=== PATIENT | female | born 1950 | race Caucasian/White ===

== ENCOUNTER → 2017-12-01 | Outpatient (CLI) | payer MEDICARE ==
[~2017-12-01] MED LIST: Aspir 8181 MG PO; CALCAVITDA PO; CHOL10002 PO; CYAN100 PO; Hair, Skin & N1 EACH PO; MULVITMIND PO; VENL75ER PO; Vitamin E100 UNIT PO
== END ==
LOC: LAB 15:20 → LAB SHORT 15:20
DX: N30.00 Acute cystitis without hematuria (principal)
CPT/HCPCS: 87077; 87086; 87186

== ENCOUNTER → 2019-02-14 | Outpatient (CLI) | payer MEDICARE ==
[~2019-02-14] MED LIST changes: +CEPH500 PO
== END ==
LOC: LAB SHORT 09:45 → LAB EV 09:45
DX: N39.0 Urinary tract infection, site not specified (principal)
CPT/HCPCS: 87077; 87086; 87186

== ENCOUNTER → 2020-02-29 | Outpatient (CLI) | payer MEDICARE ==
[2020-03-01 14:07] LABS: Stool Occult Blood Guaiac 1 Neg (Neg)
[2020-03-01 14:08] LABS: Stool Occult Blood Guaiac 2 Neg (Neg)
== END | disposition home or self-care (01) ==
LOC: LAB SHORT 17:30 → LAB EV 17:30 → LAB SHORT 03-01 11:03
PROVIDERS: Physician Assistant
DX: R10.13 Epigastric pain (principal)
CPT/HCPCS: 82272

== ENCOUNTER 2020-03-30 14:33 | Emergency (ER) | payer MEDICARE ==
[~2020-03-30] VITALS: Ht 165.1 cm; Wt 108.9 kg
[2020-03-30 15:33] LABS: BASOPHILS ABSOLUTE AUTO 0.04 K/mm3 (0.00-0.23); BASOPHILS PERCENT AUTO 1 % (0-2); EOSINOPHILS ABSOLUTE AUTO 0.03 K/mm3 (0.00-0.68); EOSINOPHILS PERCENT AUTO 0 % (0-6); Hematocrit 42.8 % (33.0-51.0); Hemoglobin 13.5 g/dL (11.5-16.0); IMMATURE GRAN ABSOLUTE AUTO 0.01 K/mm3 (0.00-0.10); IMMATURE GRAN PERCENT AUTO 0 % (0-1); LYMPHOCYTES ABSOLUTE AUTO 1.62 K/mm3 (0.84-5.20); LYMPHOCYTES PERCENT AUTO 24 % (21-46); MONOCYTES ABSOLUTE AUTO 0.56 K/mm3 (0.16-1.47); MONOCYTES PERCENT AUTO 8 % (4-13); Mean Corpuscular HGB 30.5 pg (26.0-34.0); Mean Corpuscular HGB Conc 31.5 g/dL (31.5-36.5); Mean Corpuscular Volume 97 fL (80-100); Mean Platelet Volume 10.6 fL (9.1-12.4); NEUTROPHILS ABSOLUTE AUTO 4.41 K/mm3 (1.96-9.15); NEUTROPHILS PERCENT AUTO 66 % (41-73); Platelet Count 266 K/mm3 (150-400); RDW Coefficient Variation 13.2 % (11.7-14.2); RDW Standard Deviation 47.6 fL (35.1-46.3); Red Blood Cell Count 4.42 M/mm3 (3.80-5.20); White Blood Cell Count 6.67 K/mm3 (4.00-11.30)
[2020-03-30 15:54] LABS: Alanine Aminotransfer (ALT/SGP 22 U/L (12-78); Albumin, Blood 3.1 g/dL (3.4-5.0); Albumin/Globulin Ratio 0.8 (0.8-1.8); Alk Phos 117 U/L (50-136); Anion Gap 6 mmol/L (6-16); Aspartate Aminotrans (AST/SGOT 20 U/L (12-37); Bilirubin, Total 0.3 mg/dL (0.1-1.0); Blood Urea Nitrogen 12 mg/dL (8-24); Bun/Creatinine Ratio 17.7 (12.0-20.0); CO2, Blood 27 mmol/L (21-32); Calcium, Blood 9.4 mg/dL (8.5-10.1); Chloride, Blood 108 mmol/L (98-108); Creatinine, Blood 0.68 mg/dL (0.40-1.00); Globulin, Blood 4.1 g/dL (2.2-4.0); Glomerular Filtration Rate >60 (60-); Glucose, Blood 119 mg/dL (70-99); Potassium, Blood 4.2 mmol/L (3.5-5.5); Sodium, Blood 141 mmol/L (136-145); Total Protein, Blood 7.2 g/dL (6.4-8.2)
[2020-03-30] MEDS ORDERED: PROM12.5S PR (17:28)
[2020-03-30] MEDS ORDERED: ONDA4ODT MM (17:28)
== END 2020-03-30 18:17 | disposition home or self-care (01) ==
LOC: ER 14:33
PROVIDERS: Emergency Medicine
DX: K52.9 Noninfective gastroenteritis and colitis, unspecified (principal); F32.9 Major depressive disorder, single episode, unspecified; Z79.899 Other long term (current) drug therapy
CPT/HCPCS: 36415; 74176; 80053; 83690; 85025; 96374; 96375; 99284-25; J1200; J2550; J3360; J7030

== ENCOUNTER → 2021-10-23 | Outpatient (CLI) | payer MEDICARE ==
[~2021-10-23] MED LIST changes: +ACET500 PO; +ASPI81CH PO; +ONDA4ODT MM; +OXAYDO5 M1 PO; +PROM12.5S PR
== END ==
LOC: LAB 14:40 → LAB SHORT 14:40
DX: R30.0 Dysuria (principal)
CPT/HCPCS: 87086

== ENCOUNTER 2023-02-01 07:15 | Emergency (ER) | payer MEDICARE ==
[~2023-02-01] VITALS: Ht 170.2 cm; Wt 99.8 kg
[2023-02-01] MEDS ORDERED: TRAZ50 PO (08:02)
[2023-02-01 09:00] LABS: BASOPHILS ABSOLUTE AUTO 0.06 K/mm3 (0.00-0.23); BASOPHILS PERCENT AUTO 1 % (0-2); EOSINOPHILS ABSOLUTE AUTO 0.03 K/mm3 (0.00-0.68); EOSINOPHILS PERCENT AUTO 1 % (0-6); Hematocrit 41.4 % (33.0-51.0); Hemoglobin 13.5 g/dL (11.5-16.0); IMMATURE GRAN ABSOLUTE AUTO 0.02 K/mm3 (0.00-0.10); IMMATURE GRAN PERCENT AUTO 0 % (0-1); LYMPHOCYTES ABSOLUTE AUTO 1.53 K/mm3 (0.84-5.20); LYMPHOCYTES PERCENT AUTO 26 % (21-46); MONOCYTES ABSOLUTE AUTO 0.58 K/mm3 (0.16-1.47); MONOCYTES PERCENT AUTO 10 % (4-13); Mean Corpuscular HGB Conc 32.6 g/dL (31.5-36.5); Mean Corpuscular Volume 95 fL (80-100); Mean Platelet Volume 9.9 fL (9.1-12.4); NEUTROPHILS ABSOLUTE AUTO 3.62 K/mm3 (1.96-9.15); NEUTROPHILS PERCENT AUTO 62 % (41-73); Platelet Count 258 K/mm3 (150-400); RDW Coefficient Variation 12.8 % (11.7-14.2); RDW Standard Deviation 45.1 fL (35.1-46.3); Red Blood Cell Count 4.35 M/mm3 (3.80-5.20); White Blood Cell Count 5.84 K/mm3 (4.00-11.30)
[2023-02-01 09:15] LABS: Albumin, Blood 3.2 g/dL (3.4-5.0); Albumin/Globulin Ratio 0.8 (0.8-1.8); Bilirubin, Total 0.2 mg/dL (0.1-1.0); Bun/Creatinine Ratio 22.7 (12.0-20.0); Calcium, Blood 9.1 mg/dL (8.5-10.1); Creatinine, Blood 0.84 mg/dL (0.40-1.00); Globulin, Blood 4.1 g/dL (2.2-4.0); Total Protein, Blood 7.3 g/dL (6.4-8.2)
[2023-02-01] MEDS ORDERED: HYDHCL25 PO (11:26)
[2023-02-01 11:29] VITALS: BP 147/61
== END 2023-02-01 11:38 | disposition home or self-care (01) ==
LOC: ER 07:15
PROVIDERS: Student in an Organized Health Care Education/Training Program
DX: R07.89 Other chest pain (principal); R06.02 Shortness of breath; F32.A Depression, unspecified; Z79.899 Other long term (current) drug therapy
CPT/HCPCS: 71046; 80053; 84484; 85025; 93005; 93010; 99285-25

== ENCOUNTER 2023-06-02 17:58 | Observation (INO) | payer MEDICARE ==
[~2023-06-02] VITALS: Ht 162.6 cm; Wt 109.8 kg
[~2023-06-02 17:58] MED LIST changes: -FOSAMAX70 MG PO; -OMEP20ER PO; -ROSUVASTATIN CAL5 MG PO; -Venlafaxine HCl75 MG PO
[2023-06-02] MEDS ORDERED: TRAZ50 PO (18:27)
[2023-06-02] MEDS ORDERED: FOSAMAX70 MG PO (18:28)
[2023-06-02] MEDS ORDERED: Venlafaxine HCl75 MG PO (18:28)
[2023-06-02] MEDS ORDERED: ROSUVASTATIN CAL5 MG PO (18:28)
[2023-06-02] MEDS ORDERED: Ketorolac Tromethamine 30mg Vial IV ONE (18:30)
[2023-06-02] MEDS ORDERED: Aspirin 81 MG Chew PO ONE (20:05)
[2023-06-02 20:20] LABS: Influenza A, PCR NEGATIVE (NEGATIVE); Influenza B, PCR NEGATIVE (NEGATIVE); Resp Syncytial Virus, PCR NEGATIVE (NEGATIVE); SARS-Cov-2 (COVID-19) PCR, MMC NEGATIVE (NEGATIVE)
[2023-06-02] MEDS ORDERED: Ondansetron HCl 2 MG / ML 2ML Vial IV PRN (20:35)
[2023-06-02] MEDS ORDERED: FLU VACC QS2023-24(6MOS UP)/PF 60 MCG/0.5 ML SYRINGE IM SCH (20:35)
[2023-06-02] MEDS ORDERED: Acetaminophen 325 MG TABLET PO PRN (20:35)
[2023-06-02] MEDS ORDERED: FAMOTIDINE 10 MG/ML IV ONE (20:40)
[2023-06-02] MEDS ORDERED: Mag Hydrox/Al Hydrox/Simeth 18 ML,Lidocaine 2% Viscous Soln 9 ML,Atropine/Scopalam/Hyos... PO ONE (20:40)
[2023-06-02] MEDS ORDERED: Famotidine 10 MG/ML 2ML Vial IV ONE (20:45)
[2023-06-02] MEDS ORDERED: HyDROXyzine HCl 25 MG Tab PO PRN (21:00)
[2023-06-02] MEDS ORDERED: TraZODone HCl 50 MG Tab PO SCH (21:00)
[2023-06-02 23:05] VITALS: BP 184/70
[2023-06-03 04:03] VITALS: BP 167/66
--- NOTE | 2023-06-03 04:33 | NUR ---
SHIFT SUMMARY PT IS A&O X4, VSS, NSR PER TELE, ON RA, CONT BIOX IN PLACED, DENIES CP/PRESSURE SINCE ARRIVAL TO THE FLOOR, TOLERATING PO, VOIDING WNL, INDEPENDENT IN ROOM, CALLS FOR ASSISTANCE PRN, PT HAS BEEN RESTING QUIETLY THROUGH THE NIGHT, WCTM & REPORT TO ONCOMING RN, RESP UNLABORED, CALL LIGHT IN REACH
[2023-06-03 07:13] VITALS: BP 151/54
[2023-06-03] MEDS ORDERED: Enoxaparin 40 MG/0.4 ML SYR SC SCH (09:00)
[2023-06-03] MEDS ORDERED: Venlafaxine HCl 25 MG Tab PO SCH (09:00)
[2023-06-03] MEDS ORDERED: Rosuvastatin Calcium 10 MG Tab PO SCH (09:00)
--- NOTE | 2023-06-03 11:09 | NUR ---
Upon receiving a referral for spiritual, I visited the patient. She immediately tells me about the many stressors in her life. Her main worry is for her 81 y/o spouse who is set up to undergo 45 radiation treatments for cancer beginning in August. She also shares about family unit complications and he over scheduled calendar. She explains about her [employer] beliefs and the journey through a life long tradition of Catholicism that got her there. We talk about decluttering her life, the hope and beauty that can emerge from medical struggles and ways to approach and manage relational conflicts. I normalize her experience, and provide therapeutic listening, gentle work counselor and prayer. Patient responded well and showed signs of reduced stress.
[2023-06-03] MEDS ORDERED: OMEP20ER PO (11:27)
--- NOTE | 2023-06-03 13:32 | NUR ---
PT DISCHARGED HOME. DISCHARGE INSTRUCTIONS DISCUSSED WITH PT. NO QUESTIONS OR CONCERNS AT THIS TIME. PT TO FOLLOW UP WITH PRIMARY SCHEDULED
== END 2023-06-03 11:55 | disposition home or self-care (01) ==
LOC: ER 17:58 → MEDS 17:59
PROVIDERS: Emergency Medicine; ADMIT Internal Medicine
DX: R07.89 Other chest pain (principal); G47.33 Obstructive sleep apnea (adult) (pediatric); E78.5 Hyperlipidemia, unspecified; F32.A Depression, unspecified; F41.9 Anxiety disorder, unspecified; E66.01 Morbid (severe) obesity due to excess calories; Z68.41 Body mass index [BMI] 40.0-44.9, adult; Z79.899 Other long term (current) drug therapy; Z20.822 Contact with and (suspected) exposure to COVID-19; R06.00 Dyspnea, unspecified
CPT/HCPCS: 0241U; 36415; 71046; 80048; 84484; 85025; 85379; 93005; 93010; 94762; 96372; 96374; 96375; 99285-25; A9270; G0378; J1650; J1885; J3490

== ENCOUNTER → 2023-06-02 | Outpatient (CLI) | payer MEDICARE ==
[~2023-06-02] MED LIST changes: +FOSAMAX70 MG PO; +HYDHCL25 PO; +OMEP20ER PO; +ROSUVASTATIN CAL5 MG PO; +TRAZ50 PO; +Venlafaxine HCl75 MG PO
[2023-06-02 17:36] LABS: BASOPHILS ABSOLUTE AUTO 0.06 K/mm3 (0.00-0.23); BASOPHILS PERCENT AUTO 1 % (0-2); EOSINOPHILS ABSOLUTE AUTO 0.11 K/mm3 (0.00-0.68); EOSINOPHILS PERCENT AUTO 2 % (0-6); Hemoglobin 13.5 g/dL (11.5-16.0); IMMATURE GRAN ABSOLUTE AUTO 0.01 K/mm3 (0.00-0.10); IMMATURE GRAN PERCENT AUTO 0 % (0-1); LYMPHOCYTES ABSOLUTE AUTO 2.41 K/mm3 (0.84-5.20); LYMPHOCYTES PERCENT AUTO 35 % (21-46); MONOCYTES ABSOLUTE AUTO 0.82 K/mm3 (0.16-1.47); MONOCYTES PERCENT AUTO 12 % (4-13); Mean Corpuscular HGB 31.5 pg (26.0-34.0); Mean Corpuscular HGB Conc 32.9 g/dL (31.5-36.5); Mean Corpuscular Volume 96 fL (80-100); NEUTROPHILS ABSOLUTE AUTO 3.51 K/mm3 (1.96-9.15); NEUTROPHILS PERCENT AUTO 51 % (41-73); RDW Standard Deviation 45.1 fL (35.1-46.3); Red Blood Cell Count 4.29 M/mm3 (3.80-5.20); White Blood Cell Count 6.92 K/mm3 (4.00-11.30)
[2023-06-02 17:42] LABS: Bun/Creatinine Ratio 16.3 (12.0-20.0); Calcium, Blood 9.2 mg/dL (8.5-10.1); Creatinine, Blood 1.04 mg/dL (0.40-1.00); Potassium, Blood 4.1 mmol/L (3.5-5.5)
[2023-06-02 17:51] LABS: Mean Platelet Volume 10.3 fL (9.1-12.4); Platelet Count 229 K/mm3 (150-400)
== END | disposition home or self-care (01) ==
LOC: LAB SHORT 17:31 → LAB 17:31
PROVIDERS: Physician Assistant Surgical
DX: R06.00 Dyspnea, unspecified (principal)
CPT/HCPCS: 80048; 84484; 85025; 85379

== ENCOUNTER → 2024-02-25 | Outpatient (CLI) | payer MEDICARE ==
[~2024-02-25] MED LIST changes: +FOSAMAX70 MG PO; +OMEP20ER PO; +ROSUVASTATIN CAL5 MG PO; +Venlafaxine HCl75 MG PO
== END | disposition home or self-care (01) ==
LOC: LAB 18:33 → LAB SHORT 18:33
DX: L03.011 Cellulitis of right finger (principal)
CPT/HCPCS: 87070; 87077; 87186; 87205

== ENCOUNTER 2024-05-11 11:42 | Observation (INO) | payer MEDICARE ==
[~2024-05-11] VITALS: Ht 165.1 cm; Wt 103.0 kg
[2024-05-11 13:37] LABS: Albumin, Blood 2.4 g/dL (3.4-5.0); Albumin/Globulin Ratio 0.8 (0.8-1.8); Bilirubin, Total 0.3 mg/dL (0.1-1.0); Bun/Creatinine Ratio 16.7 (12.0-20.0); Calcium, Blood 8.1 mg/dL (8.5-10.1); Creatinine, Blood 0.66 mg/dL (0.40-1.00); Globulin, Blood 3.2 g/dL (2.2-4.0); Magnesium, Blood 1.8 mg/dL (1.6-2.4); Potassium, Blood 4.2 mmol/L (3.5-5.5); Total Protein, Blood 5.6 g/dL (6.4-8.2)
[2024-05-11 13:39] LABS: BASOPHILS ABSOLUTE AUTO 0.04 K/mm3 (0.00-0.23); BASOPHILS PERCENT AUTO 1 % (0-2); EOSINOPHILS PERCENT AUTO 2 % (0-6); Hematocrit 43.6 % (33.0-51.0); Hemoglobin 14.7 g/dL (11.5-16.0); IMMATURE GRAN ABSOLUTE AUTO 0.02 K/mm3 (0.00-0.10); IMMATURE GRAN PERCENT AUTO 0 % (0-1); LYMPHOCYTES ABSOLUTE AUTO 1.67 K/mm3 (0.84-5.20); LYMPHOCYTES PERCENT AUTO 25 % (21-46); MONOCYTES ABSOLUTE AUTO 1.57 K/mm3 (0.16-1.47); MONOCYTES PERCENT AUTO 24 % (4-13); Mean Corpuscular HGB 32.2 pg (26.0-34.0); Mean Corpuscular HGB Conc 33.7 g/dL (31.5-36.5); Mean Corpuscular Volume 96 fL (80-100); Mean Platelet Volume 10.4 fL (9.1-12.4); NEUTROPHILS ABSOLUTE AUTO 3.23 K/mm3 (1.96-9.15); NEUTROPHILS PERCENT AUTO 49 % (41-73); Platelet Count 184 K/mm3 (150-400); RDW Coefficient Variation 13.2 % (11.7-14.2); RDW Standard Deviation 46.9 fL (35.1-46.3); Red Blood Cell Count 4.56 M/mm3 (3.80-5.20); White Blood Cell Count 6.63 K/mm3 (4.00-11.30)
[2024-05-11 13:42] LABS: CORONAVIRUS COVID-19 AG Negative (NEGATIVE); INFLUENZA A AG Positive (NEGATIVE); INFLUENZA B AG Negative (NEGATIVE)
[2024-05-11] MEDS ORDERED: Metoprolol Tartrate 50 MG Tab PO ONE (13:50)
[2024-05-11] MEDS ORDERED: Acetaminophen 500 MG Tab PO ONE (13:50)
[2024-05-11] MEDS ORDERED: ONDA4ODT MM (13:52)
[2024-05-11] MEDS ORDERED: XARELTO20 MG PO (13:52)
[2024-05-11] MEDS ORDERED: Toprol Xl50 MG PO (13:52)
[2024-05-11] MEDS ORDERED: Ondansetron HCl 2 MG / ML 2ML Vial IV PRN (18:45)
[2024-05-11] MEDS ORDERED: Metoprolol Tartrate 1 MG/ML 5 ML VIAL IV PRN (18:50)
[2024-05-11] MEDS ORDERED: Acetaminophen 500 MG Tab PO PRN (18:50)
[2024-05-11] MEDS ORDERED: Lactated Ringer's 1,000 ML IV SCH (18:50)
[2024-05-11] MEDS ORDERED: Guaifenesin/Dextromethorphan Syrup 5 ML UDC PO PRN (18:50)
[2024-05-11] MEDS ORDERED: TraZODone HCl 50 MG Tab PO PRN (18:55)
[2024-05-11] MEDS ORDERED: Lactated Ringer's 1,000 ML IV ONE (19:00)
[2024-05-11 19:35] LABS: Base Excess Venous 0.2 mmol/L; Bicarbonate Venous 25.3 mmol/L (24.0-30.0); PCO2 Venous 31.9 mmHg (38-42); pH Blood Venous 7.48 (7.34-7.37)
[2024-05-11] MEDS ORDERED: Metoprolol Tartrate 25 MG Tab PO SCH (21:00)
[2024-05-11] MEDS ORDERED: Oseltamivir Phosphate 75 MG Cap PO SCH (21:00)
[2024-05-12] MEDS ORDERED: Omeprazole 20 MG CapCR PO SCH (06:00)
[2024-05-12] MEDS ORDERED: Enoxaparin 40 MG/0.4 ML SYR SC SCH (09:00)
[2024-05-12] MEDS ORDERED: Rivaroxaban 10 MG Tab PO SCH (09:00)
[2024-05-12 09:05] LABS: Hematocrit 44.6 % (33.0-51.0); Hemoglobin 15.8 g/dL (11.5-16.0); Mean Corpuscular HGB 32.1 pg (26.0-34.0); Mean Corpuscular HGB Conc 35.4 g/dL (31.5-36.5); RDW Coefficient Variation 13.2 % (11.7-14.2); RDW Standard Deviation 43.6 fL (35.1-46.3); Red Blood Cell Count 4.92 M/mm3 (3.80-5.20); White Blood Cell Count 4.95 K/mm3 (4.00-11.30)
[2024-05-12 09:21] LABS: Mean Corpuscular Volume 91 fL (80-100)
[2024-05-12 09:23] LABS: Bun/Creatinine Ratio 15.7 (12.0-20.0); Calcium, Blood 8.6 mg/dL (8.5-10.1); Creatinine, Blood 0.64 mg/dL (0.40-1.00); Magnesium, Blood 2.3 mg/dL (1.6-2.4); Potassium, Blood 3.6 mmol/L (3.5-5.5)
[2024-05-12 10:01] LABS: Mean Platelet Volume 10.8 fL (9.1-12.4); Platelet Count 137 K/mm3 (150-400)
[2024-05-12 10:42] VITALS: BP 152/93
[2024-05-12] MEDS ORDERED: ALBU90OI INH (11:04)
--- NOTE | 2024-05-12 11:16 | NUR ---
Pt arrived to room 340 via gurney from ED, she is able to stand and tx to bed indep, a/ox4, pleasant and cooperative with care, follows commands well, denies pain, complains of nausea, zofran given with good relief, lungs are course, with exp wheezing t/o, resp even and unlabored, occ nonproductive cough on r/a, hrirr, tele in place running afib per monitor, see strip, no edema noted, ppp+2, cap refill <3 sec, vs stable, afebrile, piv to rfa, site is clear and patent, btx4, abd flat soft nontender, voids without diff, skin c/w/d, haylie crooks, oriented to room layout and call sytem, call light in reach.
--- NOTE | 2024-05-12 13:17 | NUR ---
"Spiritual Care Visit | Pt. request Pt. is awake in bed when she welcomes my visit. Pt is pleasant. Facilitated a life review and in the process established a significant level of rapport as our life journeys crossed many similar paths. Considered matters of ankit and belief. Pt. displayed evidence of engagement and awareness. Prayed with Pt. Pt. verbalized gratitude for the spiritual care visit."
[2024-05-12 17:44] VITALS: BP 131/86
[2024-05-12 19:59] VITALS: BP 119/82
[2024-05-13 03:06] VITALS: BP 140/97
--- NOTE | 2024-05-13 05:22 | NUR ---
SHIFT SUMMARY PT ALERT AND ORIENTED TIMES 4. PT IS ABLE TO MAKE NEEDS KNOWN TO STAFF. PT ASSISTED TO BEDSIDE COMMODE TWICE DURING THE NIGHT. PT HAS LACTOSE RINGERS RUNNING AT 125/HR. PT S SKIN INTACT. PT HAD ECHO 05/12. PT APPEARED TO SLEEP THROUGH THE NIGHT WITHOUT ISSUES. BED IN LOW POSITION, CALL LIGHT WITHIN REACH, RAILS TIMES 2.
[2024-05-13 07:23] VITALS: BP 143/85
[2024-05-13] MEDS ORDERED: Venlafaxine HCl 75 MG CapCR PO SCH (11:10)
[2024-05-13] MEDS ORDERED: OMEP20ER PO (14:11)
--- NOTE | 2024-05-13 16:41 | NUR ---
PT DISCHARGED 1445 WITH DC INSTRUCTIONS. SENT HOME WITH BELONGINGS. 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
== END 2024-05-13 14:45 | disposition home or self-care (01) ==
LOC: ER 11:42 → ERHOLD 11:43 → MEDS 05-12 10:23
PROVIDERS: Emergency Medicine; Nurse Practitioner Acute Care; ADMIT Internal Medicine
DX: I48.91 Unspecified atrial fibrillation (principal); J10.1 Influenza due to other identified influenza virus with other respiratory manifestations; G47.33 Obstructive sleep apnea (adult) (pediatric); K21.9 Gastro-esophageal reflux disease without esophagitis; E78.5 Hyperlipidemia, unspecified; F32.A Depression, unspecified; F41.9 Anxiety disorder, unspecified; I12.9 Hypertensive chronic kidney disease with stage 1 through stage 4 chronic kidney disease, or unspecified chronic kidney disease; N18.6 End stage renal disease; E66.01 Morbid (severe) obesity due to excess calories; Z68.37 Body mass index [BMI] 37.0-37.9, adult; Z79.899 Other long term (current) drug therapy
CPT/HCPCS: 36415; 71045; 80048; 80053; 82803; 83605; 83735; 85025; 85027; 87428-QW; 93005; 93010; 93306; 96360; 96361; 96375; 96376; 99285-25; A9270; G0378; J2405; J7120

== ENCOUNTER 2024-08-16 05:53 | Day surgery (SDC) | payer MEDICARE ==
[2024-08-16] VITALS (12 sets, daily range): BP systolic 103–138; BP diastolic 47–92
[~2024-08-16 05:53] MED LIST changes: +ALBU90OI INH; +Toprol Xl50 MG PO; +XARELTO20 MG PO
[2024-08-16] MEDS ORDERED: ALEN70 PO (06:39)
[2024-08-16] MEDS ORDERED: ELIQUIS5 M2 PO (06:39)
[2024-08-16] MEDS ORDERED: HYDHCL25 PO (06:41)
[2024-08-16] MEDS ORDERED: propofoL 20 ML IV ONE (06:42)
[2024-08-16] MEDS ORDERED: Flecainide Acet50 MG PO (06:42)
[2024-08-16] MEDS ORDERED: HYDCHL25 PO (06:42)
[2024-08-16] MEDS ORDERED: POTA10T PO (06:43)
[2024-08-16] MEDS ORDERED: Lactated Ringer's 1,000 ML IV ONE (06:49)
--- NOTE | 2024-08-16 07:27 | NUR ---
TWO SYNCHRONIZED [address]OCKS DELIVERED; PT TOLERATED WELL.
--- NOTE | 2024-08-16 08:48 | NUR ---
DISCHARGE INSTRUCTIONS WERE REVIEWED ALL QUESTIONS ANSWERED. 20 IV DISCONTINUED FROM RIGHT AC WITH INTACT CANNULA. PT ESCORTED OUT VIA WHEELCHAIR ESCORT.
== END 2024-08-16 23:00 | disposition home or self-care (01) ==
LOC: ORSCMMR 05:53 → ORD 05:53 → MHTC 05:53 → ORSCMMR 05:58 → ORD 05:58 → ORSCMMR 06:41 → MHTC 06:41 → ORD 07:00 → MHTC 23:00 → ORSCMMR 23:00
DX: I48.0 Paroxysmal atrial fibrillation (principal); E78.5 Hyperlipidemia, unspecified; E66.01 Morbid (severe) obesity due to excess calories; Z68.41 Body mass index [BMI] 40.0-44.9, adult; Z79.899 Other long term (current) drug therapy
CPT/HCPCS: 92960; 93005; 93010; J2704; J7120

== ENCOUNTER → 2025-01-26 | Outpatient (CLI) | payer MEDICARE ==
[~2025-01-26] MED LIST changes: +ALEN70 PO; +ELIQUIS5 M2 PO; +Flecainide Acet50 MG PO; +HYDCHL25 PO; +POTA10T PO
== END | disposition home or self-care (01) ==
LOC: LAB 10:53 → LAB SHORT 10:53
DX: R82.90 Unspecified abnormal findings in urine (principal)
CPT/HCPCS: 87086

== ENCOUNTER → 2025-02-07 | Outpatient (CLI) | payer MEDICARE ==
[2025-02-08 11:40] LABS: Bacterial Vaginosis PCR Negative (NEGATIVE); Candida Group, PCR NOT DETECTED (NOT DETECT); Candida glabrata-krusei, PCR NOT DETECTED (NOT DETECT)
== END | disposition home or self-care (01) ==
LOC: LAB SHORT 17:27 → LAB 17:27
PROVIDERS: Advanced Practice Midwife
DX: N76.0 Acute vaginitis (principal)
CPT/HCPCS: 81515